=== PATIENT | female | born 1990 | race Caucasian/White ===

== ENCOUNTER 2022-11-19 17:35 | Emergency (ER) | payer BC, SELFPAY ==
[2022-11-19 17:39] VITALS: BP 150/107; PULSE 83; RESP 16; TEMP 36.3; O2SAT 98; BMI 35.9
--- NOTE | 2022-11-19 17:40 | ED_ITS ---
HPI - Skin/Abscess/Foreign Bdy General Chief complaint: Skin/Abscess/Foreign Body <MISSY Jacobson Last Filed: 11/19/22 17:43> Stated complaint: rash on neck/upper chest <MISSY Jacobson Last Filed: 11/19/22 17:43> Time Seen by Provider: 11/19/22 18:13 <MISSY Jacobson Last Filed: 11/19/22 17:43> Source: patient <MISSY Samano Last Filed: 11/19/22 18:24> Mode of arrival: ambulatory <MISSY Samano Last Filed: 11/19/22 18:24> Limitations: no limitations <MISSY Samano Last Filed: 11/19/22 18:24> History of Present Illness HPI narrative: Patient is a 32 year old assigned female at with no reported medical history presenting to the emergency department today with a chest rash. Patient states that she noticed the rash around 1430 today and is not sure what it is from. Patient denies any dizziness, lightheadedness, abdominal pain, nausea, vomiting, fever, chills, blurry vision, double vision, loss of vision, chest pain, difficulty breathing, shortness of breath, back pain, night sweats, pain with urination, increased urinary frequency, increased urinary urgency, blood in her urine or stool, syncope or a near syncopal episode, recent trauma or falls, bowel incontinence, bladder incontinence, bowel retention, bladder retention, or any other complaints at this time. <MISSY Samano Last Filed: 11/19/22 18:24> MD complaint: rash <MISSY Samano Last Filed: 11/19/22 18:24> Onset (ago): hour(s) <MISSY Samano Last Filed: 11/19/22 18:24> Location: chest <MISSY Samano Last Filed: 11/19/22 18:24> Severity: mild <MISSY Samano Last Filed: 11/19/22 18:24> Severity scale (1-10): 1 <MISSY Samano Last Filed: 11/19/22 18:24> Relieving factors: none <MISSY Samano Filed: 11/19/22 18:24> Exacerbating factors: none <MISSY Samano Last Filed: 11/19/22 18:24> Context: none <MISSY Samano Last Filed: 11/19/22 18:24> Related Data Home medications: Previous Rx's Medication Instructions Recorded prednisone 20 mg tablet 20 mg PO DAILY 7 days #7 tabs 11/19/22 <MISSY Jacobson Last Filed: 11/19/22 17:43> Allergies/Adverse reactions: Allergies Allergy/AdvReac Type Severity Reaction Status Date / Time No Known Allergies Allergy Verified 11/19/22 17:40 <MISSY Jacobson Last Filed: 11/19/22 17:43> Review of Systems Constitutional: Constitutional: Reports no additional constitutional complaints, Denies chills, Denies fever(s) and Denies night sweats <MISSY Samano Last Filed: 11/19/22 18:24> Eyes: Eyes: Reports no additional eye complaints, Denies blurry vision, Denies change in vision, Denies diplopia, Denies eye discharge, Denies loss of vision and Denies eye pain <MISSY Samano Last Filed: 11/19/22 18:24> ENT: Denies dizziness <MISSY Samano Last Filed: 11/19/22 18:24> Cardiovascular: Cardiovascular: Reports no additional cardiovascular complaints, Denies chest pain, Denies lightheadedness, Denies Loss of Consciousness and Denies dyspnea <MISSY Samano Last Filed: 11/19/22 18:24> Respiratory: Respiratory: Reports no additional respiratory complaints and Denies dyspnea <MISSY Samano Last Filed: 11/19/22 18:24> Gastrointestinal: Gastrointestinal: Reports no additional gastrointestinal complaints, Denies abdominal pain, Denies melena, Denies hematochezia, Denies change in bowel habits and Denies change in stool character <MISSY Samano Last Filed: 11/19/22 18:24> Genitourinary: Genitourinary: Denies hematuria, Denies urinary frequency, Denies dysuria, Denies urinary incontinence, Denies urinary hesitancy and Denies urinary urgency <MISSY Samano - Last Filed: 11/19/22 18:24> Musculoskeletal: Musculoskeletal: Reports no additional musculoskeletal complaints, Denies numbness and Denies tingling <MISSY Samano - Last Filed: 11/19/22 18:24> Integumentary/Breasts: Comments: rash to the chest <MISSY Samano - Last Filed: 11/19/22 18:24> Neurologic: Denies dizziness, Denies loss of vision, Denies numbness and Denie s tingling <MISSY Samano - Last Filed: 11/19/22 18:24> Psychiatric: Psychiatric: Reports no additional psychiatric complaints <MISSY Samano - Last Filed: 11/19/22 18:24> Endocrine: Endocrine: Reports no additional endocrine complaints <MISSY Samano - Last Filed: 11/19/22 18:24> Hematologic/Lymphatic: Hematologic/Lymphatic: Reports no additional hematologic/lymphatic complaints <MISSY Samano - Last Filed: 11/19/22 18:24> Allergic/Immunologic: Allergic/Immunologic: Reports no additional allergic/immunologic complaints <MISSY Samano - Last Filed: 11/19/22 18:24> [facility] Past Medical History Attestation statement: The following information was validated with the patient. <MISSY Samano - Last Filed: 11/19/22 18:24> Source: old records reviewed and nursing notes reviewed <MISSY Samano - Last Filed: 11/19/22 18:24> Social History Social History: Social History Advance Directives: No Advance Directives Information Provided: No <MISSY Jacobson - Last Filed: 11/19/22 17:43> Physical Exam Vital Signs: Vital Signs: Last Vital Signs Temp 97.3 F 11/19/22 17:39 Pulse 83 11/19/22 17:39 Resp 16 11/19/22 17:39 BP 150/107 H 11/19/22 17:39 Pulse Ox 98 11/19/22 17:39 O2 Del Method Room Air 11/19/22 17:39 BMI result Body Mass Index 35.9 <MISSY Jacobson - Last Filed: 11/19/22 17:43> Vital Signs: Last Vital Signs Temp 97.3 F 11/19/22 17:39 Pulse 83 11/19/22 17:39 Resp 16 11/19/22 17:39 BP 150/107 H 11/19/22 17:39 Pulse Ox 98 11/19/22 17:39 O2 Del Method Room Air 11/19/22 17:39 BMI result Body Mass Index 35.9 <MISSY Samano - Last Filed: 11/19/22 18:24> Const: General: cooperative, no acute distress, alert and awake <MISSY Samano - Last Filed: 11/19/22 18:24> Nutritional Appearance: well nourished <MISSY Samano - Last Filed: 11/19/22 18:24> Orientation/consciousness: patient oriented x3 <MISSY Samano - Last Filed: 11/19/22 18:24> Limitations: no limitations <MISSY Samano - Last Filed: 11/19/22 18:24> HEENT: Head: Yes normal to inspection and Yes atraumatic <MISSY Samano - Last Filed: 11/19/22 18:24> Ears: hearing grossly normal bilaterally and external ears normal <MISSY Samano - Last Filed: 11/19/22 18:24> General nose exam: Normal external nose present, no nasal discharge noted and no epistaxis <MISSY Samano - Last Filed: 11/19/22 18:24> Face and sinus: Yes normal facial exam, No abrasion and No laceration <MISSY Samano - Last Filed: 11/19/22 18:24> Mouth: Normal oral and palatal mucosa present, no drooling and no muffled voice <MISSY Samano - Last Filed: 11/19/22 18:24> Eyes: General: appearance normal, both eyes and all related structures <MISSY Samano - Last Filed: 11/19/22 18:24> Periorbital: periorbital findings normal <MISSY Samano - Last Filed: 11/19/22 18:24> Eyelids: Yes eyelids normal <MISSY Samano - Last Filed: 11/19/22 18:24> Conjunctivae: conjunctivae normal <Kitty Armstrong PA - Last Filed: 11/19/22 18:24> Pupils: Equal, round and reactive pupils present <Kitty Armstrong PA - Last Filed: 11/19/22 18:24> EOM: EOMs intact bilaterally <Kitty Armstrong PA - Last Filed: 11/19/22 18:24> Neck: Neck: Yes normal visual inspection, Yes full ROM and Yes no lymphadenopathy <Kitty Armstrong PA - Last Filed: 11/19/22 18:24> Chest: Chest palpation & inspection: normal inspection of the chest <Kitty Armstrong PA - Last Filed: 11/19/22 18:24> Resp: Effort & Inspection: normal respiratory effort and able to speak in complete sentences <Kitty Armstrong PA - Last Filed: 11/19/22 18:24> GI: Inspection: Yes normal to inspection <Kitty Armstrong PA - Last Filed: 11/19/22 18:24> Skin: Other: rash to the chest <Kitty Armstrong PA - Last Filed: 11/19/22 18:24> Neuro: General: patient oriented x3 and moves all extremities <Kitty Armstrong PA - Last Filed: 11/19/22 18:24> Cranial nerves: Yes Equal, round and reactive pupils present <Kitty Armstrong PA - Last Filed: 11/19/22 18:24> Cognition (Neuro): normal cognition <Kitty Armstrong PA - Last Filed: 11/19/22 18:24> Motor exam (neuro): 5/5 motor strength present throughout <Kitty Armstrong PA - Last Filed: 11/19/22 18:24> Sensory Exam: Normal double simultaneous stimulation for sensation <Kitty Armstrong PA - Last Filed: 11/19/22 18:24> Coordination: [id number] test normal <Kitty Armstrong PA - Last Filed: 11/19/22 18:24> Extrem: General: Yes normal to inspection, Yes full ROM and Yes capillary refill normal <Kitty Armstrong PA - Last Filed: 11/19/22 18:24> Psych: Appearance: grossly normal <MISSY Samano - Last Filed: 11/19/22 18:24> Mental Status: mental status grossly normal <MISSY Samano Last Filed: 11/19/22 18:24> Affect: normal affect <MISSY Samano Last Filed: 11/19/22 18:24> Attitude: cooperative <MISSY Samano Last Filed: 11/19/22 18:24> Thought process: Normal thought process present <MISSY Samano Last Filed: 11/19/22 18:24> Thought content: Normal thought content present <MISSY Samano Last Filed: 11/19/22 18:24> Insight: Good insight present (Psych) <MISSY Samano Last Filed: 11/19/22 18:24> Course Course Course Narrative: RME: 32 yo F w/no sig PMHx c/o 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 Admits just got back from [place], [place] yesterday. Also states believes she was bit by something + petechial noted to anterior neck. No mucous membrane, palm or sole involvement. Handling secretions, talking in complete sentences, no skin sloughing Labs including Lyme and tick-borne illness ordered Full HPI, ROS and PE to be performed by primary ED provider. <MISSY Jacobson - Last Filed: 11/19/22 17:43> Medical Decision Making Medical Decision Making MDM Narrative: Patient is a 32 year old assigned female at with no reported medical history presenting to the emergency department today with a chest rash. Patient's physical exam showed a rash to the chest. Staff attempted to collect blood samples twice however, failed both attempts. After the second attempt, the patient requested she not be poked again. I explained my physical exam findings to the patient. I answered all questions asked by the patient. I stressed the importance of the patient taking her medication as prescribed. I stressed the importance of the patient following up with her primary care provider. I stressed the importance of the patient returning to the emergency department immediately if her symptoms were to worsen or if she were to develop any new lesions, rash spreading, lesions in her mouth, dizziness, shortness of breath, difficulty breathing, chest pain, blurry vision, loss of vision, nausea, vomiting, abdominal pain, fever, chills, back pain, or any other complaints. Patient verbalized agreement and understanding with this treatment plan and discharge. <MISSY Samano - Last Filed: 11/19/22 18:24> Differential Diagnosis Differential Diagnoses: The differential diagnosis associated with the presentation includes <MISSY Samano Last Filed: 11/19/22 18:24> rash <MISSY Samano Last Filed: 11/19/22 18:24> Discharge Plan Discharge Clinical Impression: Rash <MISSY Jacobson Last Filed: 11/19/22 17:43> Patient Disposition: Home, Self-Care <MISSY Jacobson Last Filed: 11/19/22 17:43> Instructions: Acute Rash (ED) <MISSY Jacobson Last Filed: 11/19/22 17:43> Additional Instructions: Follow up with your primary care provider. Return to the emergency department immediately if your symptoms worsen or if you develop any new lesions, rash spreading, lesions in her mouth, dizziness, shortness of breath, difficulty breathing, chest pain, blurry vision, loss of vision, nausea, vomiting, abdominal pain, fever, chills, back pain, or any other complaints. <MISSY Jacobson - Last Filed: 11/19/22 17:43> Prescriptions: New prednisone 20 mg tablet 20 mg PO DAILY 7 Days Qty: 7 0RF <MISSY Jacobson - Last Filed: 11/19/22 17:43> Referrals: Chidi Lenz MD [Primary Care Provider] - <MISSY Jacobson - Last Filed: 11/19/22 17:43> Print Language: [place] <MISSY Jacobson Last Filed: 11/19/22 17:43>
[2022-11-19] MEDS: predniSONE 20 MG TABLET PO (18:23)
== END 2022-11-19 18:32 | disposition home or self-care (01) ==
PROVIDERS: Emergency Provider Student in an Organized Health Care Education/Training Program; PCP Internal Medicine
DX: R21 Rash and other nonspecific skin eruption (principal)
CPT/HCPCS: 99282; 99283